=== PATIENT | female | born 1935 | race Caucasian/White ===

== ENCOUNTER → 2020-07-07 | Outpatient (CLI) | payer MEDICARE ==
[~2020-07-07] MED LIST: ATENOLOL50 MG PO; BUSPAR 10MG10 MG PO; FISH OIL 1,0001 EAC1 PO; HYDROCHLOROTHIA25 MG PO; LOPID600 MG PO; NORVASC5 MG PO; REMERON 15 MG T15 MG PO
== END ==
LOC: CT 06-27 15:30
DX: R10.84 Generalized abdominal pain (principal); I10 Essential (primary) hypertension; K56.49 Other impaction of intestine
CPT/HCPCS: 36415; 82565; 84520; Q9967